=== PATIENT | male | born 1995 | race Caucasian/White ===

== ENCOUNTER 2025-07-04 14:33 | Emergency (ER) | payer BC ==
[~2025-07-04] VITALS: Ht 180.3 cm; Wt 136.1 kg
[2025-07-04] MEDS ORDERED: SODIUM CHLORIDE 0.9% 500 ML IV ONE (15:15)
[2025-07-04] MEDS ORDERED: Albuterol Sulf/Ipratropium 3 ML VIAL NEB ONE (15:15)
[2025-07-04 15:49] LABS: BASO # 0.1 10*3/uL (0.0-0.1); BASO % 0.4 % (0.0-1.0); EOS # 0.3 10*3/uL (0.0-0.4); EOS % 2.2 % (1.0-4.0); MEAN CELL VOLUME 84.8 fl (80.0-94.0); MEAN CORPUSCULAR HGB 29.7 pg (27.0-31.0); MEAN PLATELET VOLUME 9.4 fl (9.6-12.3); MONO # 0.8 10*3/uL (0.1-1.0); MONO % 6.1 % (3.0-9.0); NEUT # 10.5 10*3/uL (2.3-7.9); NEUT % 76.4 % (47.0-73.0); NUCLEATED RED BLOOD CELL 0.0 % (0.0-0.0); NUCLEATED RED BLOOD CELL 0.0 10*3/uL (0.0-0.0); PLATELET COUNT AUTOMATED 305 10*3/uL (130-400); RED CELL DISTRI WIDTH 12.8 % (0-14.5)
[2025-07-04 16:16] LABS: BUN 11 mg/dl (9-23)
[2025-07-04] MEDS ORDERED: VENT7GM INH (17:01)
[2025-07-04] MEDS ORDERED: PREDNISONE20 M1 PO (17:01)
== END 2025-07-04 17:12 | disposition home or self-care (01) ==
LOC: ED 14:33
PROVIDERS: Emergency Medicine
DX: R06.00 Dyspnea, unspecified (principal); R19.7 Diarrhea, unspecified; R55 Syncope and collapse; E11.9 Type 2 diabetes mellitus without complications; R07.2 Precordial pain